=== PATIENT | female | born 1950 | race Native Hawaiian/Other Pacific Islander ===

== ENCOUNTER 2019-02-12 13:44 | Outpatient (CLI) | payer OTHER | END 2019-02-12 20:33 | disposition home or self-care (01) | LOC: MRI 13:44 | DX: M54.9 Dorsalgia, unspecified (principal) | CPT/HCPCS: 36415; 82565; 84520; A9576 ==

== ENCOUNTER 2020-10-06 16:06 | Outpatient (CLI) | payer OTHER ==
[2020-10-06 16:37] LABS: PLATELET COUNT 225 K/uL (152-353)
[2020-10-06 16:38] LABS: POTASSIUM 3.7 mmol/L (3.6-5.2)
== END 2020-10-06 18:59 | disposition home or self-care (01) ==
LOC: LAB 16:06
PROVIDERS: ATTEND Nurse Practitioner Family
DX: I10 Essential (primary) hypertension (principal); F41.8 Other specified anxiety disorders; E78.00 Pure hypercholesterolemia, unspecified; G62.89 Other specified polyneuropathies; E55.9 Vitamin D deficiency, unspecified; R25.2 Cramp and spasm; E78.49 Other hyperlipidemia; J44.1 Chronic obstructive pulmonary disease with (acute) exacerbation; R73.9 Hyperglycemia, unspecified; R53.83 Other fatigue
CPT/HCPCS: 80053; 80061; 82306; 83036; 84439; 84443; 84481; 85007; 85027

== ENCOUNTER 2020-12-23 09:56 | Outpatient (CLI) | payer OTHER | END 2020-12-23 23:03 | disposition home or self-care (01) | LOC: CT 09:56 | PROVIDERS: ATTEND Nurse Practitioner Family | DX: R10.30 Lower abdominal pain, unspecified (principal); R10.2 Pelvic and perineal pain; R11.0 Nausea | CPT/HCPCS: 36415; 82565; 84520; Q9963 ==

== ENCOUNTER 2022-08-18 08:36 | Outpatient (CLI) | payer OTHER ==
[~2022-08-18] VITALS: Ht 157.5 cm; Wt 63.5 kg
== END 2022-08-18 19:08 | disposition home or self-care (01) ==
LOC: NM 08:36
PROVIDERS: ATTEND Physician Assistant
DX: Z01.818 Encounter for other preprocedural examination (principal); I10 Essential (primary) hypertension; I25.10 Atherosclerotic heart disease of native coronary artery without angina pectoris
CPT/HCPCS: A9500; J2785

== ENCOUNTER 2023-05-25 13:22 | Outpatient (CLI) | payer OTHER, MEDICARE | END 2023-05-25 20:30 | disposition home or self-care (01) | LOC: MRI 13:22 | PROVIDERS: ATTEND Student in an Organized Health Care Education/Training Program | DX: M48.062 Spinal stenosis, lumbar region with neurogenic claudication (principal); M54.16 Radiculopathy, lumbar region; M47.816 Spondylosis without myelopathy or radiculopathy, lumbar region | CPT/HCPCS: 36415; 82565; 84520; A9576 ==